=== PATIENT | male | born 1940 | race Caucasian/White ===

== ENCOUNTER 2022-09-09 13:47 | Emergency (ER) | payer MEDICARE, OTHER, SELFPAY ==
[2022-09-09 14:01] VITALS: BP 129/65; PULSE 81; RESP 14; TEMP 36.7; O2SAT 96; BMI 31.9
--- NOTE | 2022-09-09 14:27 | CRLHL7_ITS ---
For Patients: As a result of the Century Cures Act, medical imaging exams and procedure reports are released immediately into your electronic medical record. You may view this report before your referring provider. If you have questions, please contact your health care provider. Indication: Fall on ice Technique: Three images of the right ankle were acquired Comparison: There are no prior studies for comparison Findings: There is an oblique fracture of the distal fibula. Maximum displacement is about 2 millimeters. There is no widening of the syndesmosis or of the medial compartment. Bone mineral density is decreased. 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 Impression: Distal fibular fracture. No widening of the medial compartment or the distal tibiofibular syndesmosis. Demineralization. Midfoot and hindfoot osteoarthritis. Dense atherosclerotic vascular calcifications. Dictated by David Chavez MD @ 09/09/2022 3:11:17 PM (Electronically Signed)
--- NOTE | 2022-09-09 16:17 | ED.LOWEXIN ---
HPI - Extremity Injury (Lower) General Date Seen: 09/09/22 Chief Complaint: Extremity Pain/Injury, Lower Stated Complaint: Injured Rt Ankle,Fell on Ice Time Seen by Provider: 09/09/22 13:56 Source: patient and family Mode of arrival: ambulatory Limitations: no limitations History of Present Illness HPI Narrative: 82-year-old gentleman presents here for evaluation after a slip in tripped, injuring his right ankle, does not have a lot of pain with this except when he moves around he tells me. Denies any numbness tingling or weakness, or injury anywhere else. Presents here with his , has a history of really poor wound healing also. MD complaint: ankle injury Exacerbating factors: nothing Context: fall Related Data Home Medications Medication Instructions Recorded Confirmed atorvastatin 40 mg tablet 40 mg PO DAILY 09/09/22 09/09/22 budesonide-formoterol HFA 80 2 puff inhalation BID 09/09/22 09/09/22 mcg-4.5 mcg/actuation aerosol inhaler (Symbicort) fluticasone propionate 110 2 puff inhalation BID 09/09/22 09/09/22 mcg/actuation HFA aerosol inhaler (Flovent HFA) isosorbide mononitrate 30 mg 15 mg PO DAILY 09/09/22 09/09/22 tablet,extended release 24 hr montelukast 10 mg tablet 10 mg PO DAILY 09/09/22 09/09/22 nitroglycerin 0.4 mg sublingual 0.4 mg sublingual Q5M PRN chest 09/09/22 09/09/22 tablet pain Allergies Allergy/AdvReac Type Severity Reaction Status Date / Time No Known Drug Allergies Allergy Verified 09/09/22 14:06 Review of Systems Status of ROS: Reports: 10 or more systems reviewed and unremarkable except as noted in History and below PFSH PFSH Social History Smoking Status: Never smoker Do you use any of these nicotine containing products: None How often do you have a drink containing alcohol: never AUDIT-C Alcohol total score: 0 Non-prescribed substance use: denies use Exam Narrative: Exam Narrative: On examination patient is no distress in room 4 he is seen with my medical student, he has swelling on the medial aspect of his right ankle, just above this a healed area where there is obviously a skin lesion. His DP and posterior tibial pulses seem okay and his right ankle, he has really minimal at dorsiflexion or plantar flexion of his ankle, his knee has full painless range of motion, as does his right hip. Sensation is normal over his foot. Const: Vital Signs, click to edit/add: Vital Signs - 24 hr 09/09/22 14:01 Temperature 98.0 F Pulse Rate [Pulse Oximeter] 81 Respiratory Rate 14 Blood Pressure [Ri ght Upper Arm] 129/65 Pulse Oximetry 96 Oxygen Delivery Me thod Room Air Documenting provider has reviewed patient's vital signs: yes Course Course Hospital Course: I discussed the case with the orthopedic surgeon on-call, he recommended after we discussed this a cam walker, I do not think you would be a great candidate for Caleb Monterroso in nonweightbearing and crutches. He does have of I walker at home he can use, follow-up will be with Orthopedics next week, we talked about pain control using Tylenol, and a little bit of oxycodone was given at 1 tablet of the 5 mg he can take every 6 hours for the discomfort. I warned him about says side effects of this including sedation, interaction with alcohol, driving, and also constipation Vital Signs Vital signs: Initial Vital Signs Temperature 98.0 F 09/09/22 14:01 Temperature Source Temporal Artery Scan 09/09/22 14:01 Pulse Rate 81 09/09/22 14:01 Pulse Rhythm 09/09/22 14:01 Respiratory Rate 14 09/09/22 14:01 Blood Pressure 129/65 09/09/22 14:01 Blood Pressure Mean 86 09/09/22 14:01 Blood Pressure Position Sitting 09/09/22 14:01 Pulse Oximetry 96 09/09/22 14:01 Oxygen Delivery Method 09/09/22 14:01 Vital Signs Temperature 98.0 F 09/09/22 14:01 Pulse Rate 81 09/09/22 14:01 Respiratory Rate 14 09/09/22 14:01 Blood Pressure 129/65 09/09/22 14:01 Pulse Oximetry 96 09/09/22 14:01 Oxygen Delivery Method 09/09/22 14:01 Temperature 98.0 F 09/09/22 14:01 Pulse Rate 81 09/09/22 14:01 Respiratory Rate 14 09/09/22 14:01 Blood Pressure 129/65 09/09/22 14:01 Pulse Oximetry 96 09/09/22 14:01 Oxygen Delivery Method 09/09/22 14:01 MDM - Extremity Injury (Lower) Differential Diagnosis Differential diagnosis: Likely ankle sprain and strain, acute internal derangement of knee, fracture of femur, fracture of hip, puncture wound of foot, fracture of toe and ankle fracture Medical Records Attestation: I reviewed the patient's medical records. Imaging Data Ankle x-ray: Attestation: I have reviewed the pertinent imaging results. My impression: Distal oblique fibular fracture, with slight shifting of the ankle moretise Radiologist's impression: Patient: VIRIDIANA CA Facility: [facility] Site . Site : [id number] Study: XRay Extremity Right ANKLE 3V-09/09/2022 2:44:00 PM Ordering Physician: Salome Karimi Final Report: Indication: Fall on ice Technique: Three images of the right ankle were acquired Comparison: There are no prior studies for comparison Findings: There is an oblique fracture of the distal fibula. Maximum displacement is about 2 millimeters. There is no widening of the syndesmosis or of the medial compartment. Bone mineral density is decreased. 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 Impression: Distal fibular fracture. No widening of the medial compartment or the distal tibiofibular syndesmosis. Demineralization. Midfoot and hindfoot osteoarthritis. Dense atherosclerotic vascular calcifications. Dictated by David Chavez MD @ 09/09/2022 3:11:17 PM (Electronic Signature) Discharge Plan Discharge Clinical Impression: Ankle fracture, right Patient Disposition: Home w/ Parent or Adult Condition: Stable Instructions: Leg Fracture (ED) Additional Instructions: Home rest cam walker please leave this on it only comes off when you wash herself. Follow-up next week with Orthopedics appointment will be made for you. Would also use walker at home to try to offload as much as he can. For the discomfort in then for breakthrough pain you can use the prescription as needed. Be careful with combining alcohol with the pain medication as this can make you dizzy. I would also suggest a stool softener. Prescriptions: No Action atorvastatin 40 mg tablet 40 mg PO DAILY budesonide-formoterol [Symbicort] 80-4.5 mcg/actuation HFA aerosol inhaler 2 puff INHALATION BID fluticasone propionate [Flovent HFA] 110 mcg/actuation HFA aerosol inhaler 2 puff INHALATION BID montelukast 10 mg tablet 10 mg PO DAILY isosorbide mononitrate 30 mg tablet extended release 24 hr 15 mg PO DAILY nitroglycerin 0.4 mg tablet, sublingual 0.4 mg sublingual Q5M PRN (Reason: chest pain) Follow Up/Referrals: Kvng Bright MD [Staff Physician] - Rich Diaz MD [Primary Care Provider] - Fuad Mosqueda MD [Staff Physician] - Trev Mcmahon MD [Emergency Provider] - Stand Alone Forms: [facility] Info Instructions
== END 2022-09-09 16:33 | disposition home or self-care (01) ==
PROVIDERS: Emergency Provider Family Medicine; PCP Family Medicine
DX: S82.831A Other fracture of upper and lower end of right fibula, initial encounter for closed fracture (principal); W00.9XXA Unspecified fall due to ice and snow, initial encounter
CPT/HCPCS: 73610; 99283

== ENCOUNTER 2023-05-26 14:23 | Emergency (ER) | payer MEDICARE, OTHER, SELFPAY ==
[2023-05-26 14:30] VITALS: BP 156/80; PULSE 77; RESP 18; TEMP 36.8; O2SAT 94; BMI 31.7
--- NOTE | 2023-05-26 14:46 | CRLHL7_ITS ---
For Patients: As a result of the Century Cures Act, medical imaging exams and procedure reports are released immediately into your electronic medical record. You may view this report before your referring provider. If you have questions, please contact your health care provider. INDICATION: Pain in left calf. COMPARISON: None. TECHNIQUE: A compression venous ultrasound exam was performed of the left lower extremity using doyle-scale imaging, color Doppler and spectral Doppler analysis. FINDINGS: Sonographic imaging of the left lower extremity demonstrates normal compressibility and color Doppler venous blood flow within the common femoral, femoral, deep femoral, and proximal greater saphenous veins. At a lower level the popliteal, peroneal, and posterior tibial veins also show normal compressibility and color Doppler venous blood flow. Limited imaging of the contralateral groin demonstrates a normal spectral waveform and color Doppler venous blood flow within the right common femoral vein. IMPRESSION: Negative for acute DVT in the left lower extremity. Dictated by Montserrat Dawn MD @ 05/26/2023 4:24:39 PM (Electronically Signed)
--- NOTE | 2023-05-26 15:17 | ED.GENADULT ---
HPI - General Adult General Date Seen: 05/26/23 Chief complaint: Extremity Pain/Injury, Lower Stated complaint: L leg pain Time Seen by Provider: 05/26/23 14:43 Source: patient Mode of arrival: ambulatory Limitations: no limitations History of Present Illness HPI narrative: Patient is an 83-year-old male here for evaluation of left calf pain which started yesterday. He is concerned about a possible DVT. He does take Eliquis for atrial fibrillation, does not have any history of DVT or PE. Has not noted any swelling or redness in the leg. He says that it was bothering him a little yesterday and then today when he stood up he noted much more pain in the more proximal calf up to medial to the knee. No trauma. No chest pain or difficulty breathing. Related Data Home Medications Medication Instructions Recorded Confirmed atorvastatin 40 mg tablet 40 mg PO DAILY 09/09/22 12/06/22 budesonide-formoterol HFA 80 2 puff inhalation BID 09/09/22 12/06/22 mcg-4.5 mcg/actuation aerosol inhaler (Symbicort) fluticasone propionate 110 2 puff inhalation BID 09/09/22 12/06/22 mcg/actuation HFA aerosol inhaler (Flovent HFA) isosorbide mononitrate 30 mg 15 mg PO DAILY 09/09/22 12/06/22 tablet,extended release 24 hr montelukast 10 mg tablet 10 mg PO DAILY 09/09/22 12/06/22 nitroglycerin 0.4 mg sublingual 0.4 mg sublingual Q5M PRN chest 09/09/22 12/06/22 tablet pain apixaban 5 mg tablet (Eliquis) 5 mg PO BID 05/26/23 05/26/23 Allergies Allergy/AdvReac Type Severity Reaction Status Date / Time No Known Drug Allergies Allergy Verified 12/06/22 08:25 [facility] Medical History (Updated 05/26/23 @ 16:09 by Marla Boles MD) Ankle fracture ?S82.899A - Other fracture of unspecified lower leg, initial encounter for closed fracture (ICD-10) Cellulitis ?L03.90 - Cellulitis, unspecified (ICD-10) Palpitations ?R00.2 - Palpitations (ICD-10) Infected dog bite of hand ?S61.459A - Open bite of unspecified hand, initial encounter (ICD-10) ?L08.9 - Local infection of the skin and subcutaneous tissue, unspecified (ICD-10) ?W54.0XXA - Bitten by dog, initial encounter (ICD-10) Social History Smoking Status: Former smoker Do you use any of these nicotine containing products: None How often do you have a drink containing alcohol: never AUDIT-C Alcohol total score: 0 Non-prescribed substance use: denies use service: Yes Exam Narrative: Exam Narrative: Vital signs reviewed In general, alert, well-appearing elderly male. Breathing easily. Heart: Regular rate and rhythm. Lungs: Clear. Extremities: Examination of the left lower extremity shows it to be normal in appearance, he has some varicosities but no significant edema, no erythema or warmth. He does have some tenderness throughout the calf. Has full range of motion of the knee, no effusion, erythema or warmth. Skin: Warm dry well perfused. Const: Vital Signs, click to edit/add: Vital Signs - 24 hr 05/26/23 14:30 Temperature 98.3 F Pulse Rate [Right Pulse Oximeter] 77 Respiratory Rate 18 Blood Pressure [Ri ght Upper Arm] 156/80 H Pulse Oximetry 94 Oxygen Delivery Me thod Room Air Documenting provider has reviewed patient's vital signs: yes Course Course ED Course: Discussed with him that DVT is relatively unlikely given his apixaban, but go ahead and get an ultrasound to rule this out for him. Otherwise, exam is pretty unremarkable. Symptoms do not sound like claudication, there is no evidence of cellulitis. He does have some varicosities and perhaps those are contributing. Preliminary read of the ultrasound is negative for DVT but he does have moderate calcifications in his arterial system. Might be reasonable to pursue that as an outpatient, certainly no indication of ischemia today. I have asked Dr. Boston to follow up on the final ultrasound read, if there are any differences between the preliminary and final we will contact the patient. Otherwise, discharged home, Tylenol if needed, recommend primary care follow-up in consideration of arterial imaging. Return for severe pain, duskiness, redness, fever or other acute changes. Vital Signs Vital signs: Initial Vital Signs Temperature 98.3 F 05/26/23 14:30 Temperature Source Temporal Artery Scan 05/26/23 14:30 Pulse Rate 77 05/26/23 14:30 Respiratory Rate 18 05/26/23 14:30 Blood Pressure 156/80 H 05/26/23 14:30 Blood Pressure Mean 105 05/26/23 14:30 Blood Pressure Position Sitting 05/26/23 14:30 Pulse Oximetry 94 05/26/23 14:30 Oxygen Delivery Method Room Air 05/26/23 14:30 Vital Signs Temperature 98.3 F 05/26/23 14:30 Pulse Rate 77 05/26/23 14:30 Respiratory Rate 18 05/26/23 14:30 Blood Pressure 156/80 H 05/26/23 14:30 Pulse Oximetry 94 05/26/23 14:30 Oxygen Delivery Method Room Air 05/26/23 14:30 Temperature 98.3 F 05/26/23 14:30 Pulse Rate 77 05/26/23 14:30 Respiratory Rate 18 05/26/23 14:30 Blood Pressure 156/80 H 05/26/23 14:30 Pulse Oximetry 94 05/26/23 14:30 Oxygen Delivery Method Room Air 05/26/23 14:30 Discharge Plan Discharge Clinical Impression: Left leg pain Patient Disposition: Home, Self-Care Condition: Stable Instructions: Leg Pain (ED) Additional Instructions: Ultrasound today does not show any evidence of blood clot, but does show some calcifications in the arteries of your leg. I would like you to follow-up with your primary doctor to discuss further arterial imaging. Return at any time for severe unremitting pain, new symptoms such as redness or duskiness of your leg, significant swelling, fever etcetera. Prescriptions: No Action Eliquis 5 mg tablet 5 mg PO BID atorvastatin 40 mg tablet 40 mg PO DAILY budesonide-formoterol [Symbicort] 80-4.5 mcg/actuation HFA aerosol inhaler 2 puff INHALATION BID fluticasone propionate [Flovent HFA] 110 mcg/actuation HFA aerosol inhaler 2 puff INHALATION BID montelukast 10 mg tablet 10 mg PO DAILY isosorbide mononitrate 30 mg tablet extended release 24 hr 15 mg PO DAILY nitroglycerin 0.4 mg tablet, sublingual 0.4 mg sublingual Q5M PRN (Reason: chest pain) Follow Up/Referrals: Rich Diaz MD [Primary Care Provider] - Stand Alone Forms: [employer] Info Instructions
== END 2023-05-26 16:33 | disposition home or self-care (01) ==
PROVIDERS: Emergency Provider Emergency Medicine; PCP Family Medicine
DX: M79.662 Pain in left lower leg (principal)
CPT/HCPCS: 93971; 99283; 99284

== ENCOUNTER 2023-08-03 08:45 | Outpatient (RCR) | payer MEDICARE, OTHER, SELFPAY | END 2023-08-03 10:11 | disposition home or self-care (01) | PROVIDERS: PCP Family Medicine; Visit Provider Family Medicine | DX: M17.12 Unilateral primary osteoarthritis, left knee (principal); M25.562 Pain in left knee; Z51.89 Encounter for other specified aftercare | CPT/HCPCS: 97110; 97161 ==

== ENCOUNTER 2024-09-14 11:30 | Emergency (ER) | payer MEDICARE, OTHER, SELFPAY ==
[2024-09-14 11:53] VITALS: BP 153/72; PULSE 87; RESP 18; TEMP 36.9; O2SAT 93; BMI 30.9
--- NOTE | 2024-09-14 12:00 | CRLHL7_ITS ---
For Patients: As a result of the Cures Act, medical imaging exams and procedure reports are released immediately into your electronic medical record. You may view this report before your referring provider. If you have questions, please contact your health care provider. INDICATION: Cough TECHNIQUE: Chest 2 views. COMPARISON: None. FINDINGS: Cardiovascular and mediastinum: Heart size is normal. Unremarkable mediastinum. Left chest wall pacemaker with in the right atrial appendage and right ventricle. Lungs and pleural spaces: Mild bronchial wall thickening. No pneumothorax or pleural effusion. Bones and soft tissues: No significant findings. IMPRESSION: Mild bronchial wall thickening, which can be seen with infectious or inflammatory bronchitis. Dictated by Bee Briggs MD @ 09/14/2024 12:41:51 PM (Electronically Signed)
[2024-09-14 12:46] LABS: PCR FLU A Negative PCR FLU A (Negative); PCR FLU B Negative PCR FLU B (Negative); PCR RSV Negative PCR RSV (Negative); SARS PCR* Negative SARS-CoV-2 (Negative)
[2024-09-14] MEDS: predniSONE 10 MG TABLET 50 MG PO (14:36)
[2024-09-14] MEDS: IPRAT-ALBUT 0.5-2.5 MG/3 ML NEB 1 NEB IH ×2 (14:37→15:01)
--- OUTSIDE RECORDS SUMMARY | 2024-09-14 14:56 | XMS_ITS | Clinical Summary ---
Author Organization [facility] Address [address] [place] [address] Care Team Providers Care Slag Wheeler Name Role Phone Unavailable Primary Care Provider Unavailabl e Source Comments Patient records contain information from all sites at [facility]. For routine questions regarding patient records, call [phone] during business hours, M-F 8:00 AM - 5:00 PM Central Time. Record requests for emergency care only can be directed to [phone] at any time.[facility] Allergies No known active allergies Medications albuterol (PROAIR HFA) 90 mcg/actuation inhaler Inhale 2 puffs. 3 Active ascorbate calcium, Vitamin C, 500 mg tablet Take 500 mg by mouth. 6 Active atorvastatin (LIPITOR) 40 mg tablet Take 40 mg by mouth. 9 Active isosorbide mononitrate (IMDUR) 30 mg 24 hr tablet Take 15 mg by mouth. 9 Active fluticasone propionate (FLOVENT HFA) 110 mcg/actuation inhaler Inhale. 8 Active nitroglycerin (NITROSTAT) 0.[address] 0.4 mg under the tongue. 9 Active montelukast sodium (MONTELUKAST ORAL) Take by mouth every evening. 5 Active famotidine (PEPCID) 20 mg tablet Take 20 mg by mouth. 1 Active budesonide/formo terol fumarate (SYMBICORT INHL) Act christin sodium chloride-sodium bicarbonate (NEILMED SINUS RINSE) nasal rinse Administer into nostril(s). 5 Active atorvastatin (LIPITOR) 40 mg tablet Take 40 mg by mouth. 3 Active montelukast (SINGULAIR) 10 mg tablet Take 10 mg by mouth. 3 Active fluticasone propionate (FLOVENT HFA) 110 mcg/actuation inhaler Inhale 2 puffs. 3 Active Active Problems Problem Noted Date Diagnosed Date Asthma 05/10/2023 Fracture Lower Leg Other Closed Initial Right Atrial Fibrillation Paroxysmal 06/04/2022 Overview (05/10/2023): Discussed his 2 bouts of 4-5 hours of atrial fibrillation in last year with Dr. Munson of Cardiology and he recommended a discussion about Eliquis with Kevin and at the very least Aspirin 325 mg daily and then a full Cardiology consult. Kevin refused going on Eliquis at least until he sees Cardiology but will take aspirin 325 mg daily. Rich Diaz MD signed electronically .................... 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 Syncope And Collapse 12/08/2018 Asthma Moderate Persistent 10/09/2018 Rhinitis Chronic 10/09/2018 Immunizations Immunization Administration Dates Next Due Influenza high dose QV(65 years or older) (PF) 1 08/24/2020 SARS-COV-2 (COVID-19) - PFIZ ER (Discontinued)(12 years or older) 06/24/2021 Social History Tobacco Use Types Packs/Day Years Used Date Smoking Tobacco: Former Smokeless Tobacco: Never Tobacco Cessation:Counseling Given: Not Answered Overall Financial Resource Strain (CARDIA) Answe r Date Recorded How hard is it for you to pa y for the very basics like food, housing, medical care, and heating? Not hard at all 05/04/2023 Exercise Vital Sign Answer Date Recorde d On average, how many days pe r week do you engage in moderate to strenuous exercise (like a brisk walk)? 0 days 05/04/2023 On average, how many minutes do you engage in exercise at this level? 0 min 05/04/2023 Hunger Vital Sign Answer Date Recorded Within the past 12 months, y ou worried that your food would run out before you got the money to buy more. Never true 05/04/20 Within the past 12 months, t he food you bought just didn't last and you didn't have money to get more. Never true 05/04/2023 PRAPARE - Transportation Answer Date Re corded In the past 12 months, has l ack of transportation kept you from medical appointments or from getting medications? No 04/22 In the past 12 months, has l ack of transportation kept you from meetings, work, or from getting things needed for daily living? No 05/04/2023 Nutrition Answer Date Recorded Nutrition: EVOO Fat Source Unknown 05/04 On average, how many serving s of fruits and vegetables do you eat per day (serving size is equal to 1 cup or approximately the size of a tennis ball)? 0-2 05/04/2023 Dental Answer Date Recorded Dental: Regular Dentist Yes 05/04/20 Employment Answer Date Recorded Employment status Retired 05/04/2023 Housing Stability Answer Date Recorded What is your living situation today? I have a [facility] place to live 05/04/2023 Sex and Gender Information Value Date Recorded Sex Assigned at Male 05/04/2023 2:44 PM CDT Legal Sex Male 1:21 PM COOK 3 PASTRY Gender Identity Male 05/04/2023 2:44 PM CDT Sexual Orientation Not on file Last Filed Vital Signs Vital Sign Reading Time Taken Comments Blood Pressure 111/76 12/11/2018 12:45 PM CDT Pulse 75 12/11/2018 12:45 PM CDT Temperature 36.7 C (98.1 F) 12/11/2018 10:22 AM CDT Respiratory Rate 12 12/11/2018 12:45 PM CDT Oxygen Saturation 94% 12/11/2018 12:45 PM CDT Inhaled Oxygen Concentration - - Weight 82 kg (180 lb 12.4 oz) 07/28/2015 6:39 AM COOK 3 PASTRY Height 160 cm (5' 2.99) 07/28/2015 8:21 AM COOK 3 PASTRY Body Mass Index 32.03 07/28/2015 6:39 AM COOK 3 PASTRY Plan of Treatment Health Maintenance Due Date Last Done Comments Zoster Vaccines (1 of 2) 02/02/1988 IPV Vaccines (2 of 3 - Adult catch-up series) 11/02/1996 10/05/1996 RSV vaccine - (32-3 6 weeks) or 60+ years (1 - 1-dose 75+ series) 2013 COVID-19 Vaccine (7 - 2023-2 5 season) 2024 06/08/2023, 06/15/2022, 01/13/2022, Additional history exists Influenza Vaccine (#1) 2024 , 06/24/2021, 06/20/2019, Additional history exists Depression Screening (Annual PHQ-2) 08/22/2024 Fall Risk Screen (Annual) 08/22/2024 DTaP,Tdap,and Td Vaccines (2 - Td or Tdap) 06/21/2029 06/21/2019 Pneumococcal vaccine (50+ years) Completed 06/04/20 15, 01/15/2008 Insurance [employer] MEDICARE
--- OUTSIDE RECORDS SUMMARY | 2024-09-14 14:56 | XMS_ITS ---
Author Organization [facility] Address [address] [place] [id number] Care Team Providers Care Furnace Tapper Name Role Phone Unavailable Unavailable Unavailable Surgery Details Not on file Complications Check Surgery Details section. Procedure Estimated Blood Loss Check Surgery Details section. Procedure Findings Check Surgery Details section. Procedure Specimens Taken Check Surgery Details section.
--- OUTSIDE RECORDS SUMMARY | 2024-09-14 14:56 | XMS_ITS | Clinical Summary ---
Author Organization [employer] Address [place], [place] [address] Care Team Providers Care Information Security Architect Name Role Phone Rich Diaz MD Primary Care Provider [phone] Allergies No known active allergies Medications Inhalational Spacing Device For home use.VORB MD Samantha 1 Device 0 09/05/19 14 Active sod chlor&bicarb-squee z bottle (NEILMED SINUS RINSE COMPLETE) pkdv Inhale in the nostril(s). 0 06/04/20 15 Active famotidine (Pepcid AC) 20 mg tabletIndications: Moderate persistent asthma without complication Take 1 Tablet (20 mg) by mouth 2 times daily. 0 12/30/19 21 Active nitroglycerin (NITROSTAT) 0.4 mg sublingual tabletIndications: Abnormal stress test,Atypical chest pain Place 1 Tablet (0.4 mg) under the tongue every 5 minutes if needed for Chest Pain. May repeat x 3 doses 25 Tablet 1 01/25/20 24 Active isosorbide mononitrate (IMDUR) 30 mg extended release tablet 24 HourIndications:Ab normal stress test Take 0.5 Tablets (15 mg) by mouth once daily. 45 Tablet 4 01/25/20 24 Active montelukast (SINGULAIR) 10 mg tabletIndications: Uncomplicated severe persistent asthma Take 1 Tablet (10 mg) by mouth at bedtime. 90 Tablet 3 01/25/20 24 Active atorvastatin (Lipitor) 40 mg tabletIndications: Hyperlipidemia, unspecified hyperlipidemia type Take 1 Tablet (40 mg) by mouth once daily. 90 Tablet 4 01/25/20 24 Active apixaban (ELIQUIS) 5 mg tabletIndications: Paroxysmal atrial fibrillation (HC) Take 1 Tablet (5 mg) by mouth two times daily. 180 Tablet 3 01/25/20 24 Active albuterol HFA (ProAir HFA) 90 mcg/actuation inhalerIndications :Moderate persistent asthma with exacerbation Inhale 1-2 Puffs by mouth every 6 hours if needed for Shortness of Breath 1st choice. 1 Each 03/05/20 24 Active albuterol HFA (Ventolin HFA) 90 mcg/actuation inhalerIndications :Moderate persistent asthma without complication Inhale 2 Puffs by mouth 4 times daily if needed for Shortness Of Breath or Wheezing. 1 Each 11 04/26/20 24 Active hyaluronidase in lido 2%-bupiv. 0.75% - long eye block, clinic supply, Use as directed for procedure. Refrigerate. Exp: 05/11/24 DOS: 05/08/24 10 mL 4 12:15 PM CDT 04/30/20 24 Active budesonide-formote roL (SYMBICORT) 160-4.5 mcg/actuation (160-4.5 mcg each actuation) inhalerIndications :Uncomplicated severe persistent asthma Inhale 2 Puffs by mouth two times daily. Inhale 2 puffs twice daily 3 Each 2 06/28/20 24 Active guaiFENesin SR (MUCINEX 12 HOUR) 1,200 mg Ta12 Take 1,200 mg by mouth every 12 hours if needed for Expectoration. Active albuterol-ipratrop ium (DUONEB) (2.5-0.5 mg) in 3 mL NEBULIZATION solutionIndication s:Moderate persistent asthma without complication Inhale 3 mLs via nebulization route 2-4 times daily as needed 360 mL 1 08/24/19 25 Active albuterol-ipratrop ium (DUONEB) (2.5-0.5 mg) in 3 mL NEBULIZATION solutionIndication s:Moderate persistent asthma without complication Inhale 3 mL via a nebulizer two times daily. 60 mL 3 04/26/20 24 025 Discontin ued(Reord er (E-cancel not sent)) Active Problems Problem Noted Date Diagnosed Date Uncomplicated severe persistent asthma 4 Paroxysmal atrial fibrillation 06/04/2022 Overview (08/17/2022): Discussed his 2 bouts of 4-5 hours [...] Diaz MD signed electronically .................... 08/17/2022 Chronic systolic heart failure 12/29/2020 TOY 12/03/2013 AHI-6.6 01/01/2019 Advanced sleep phase syndrome 01/01/2019 Paroxysmal high-grade AVB (a trioventricular block) with 3.1-8.2-second pauses on extended Holter from 11/19/2018 to 11/30/2018 12/08/2018 S/P dual-chamber permanent p acemaker implantation on 12/08/2018 12/08/2018 History of recurrent transie nt near syncope (likely manifestation of paroxysmal high-grade atrioventricular block) 12/08/2018 Moderate persistent asthma 10/09/2018 Chronic rhinitis 10/09/2018 Unspecified asthma(493.90) Personal history of malignant neoplasm of prosta te Overview (01/14/2008): s/p radical prostatectomy Aug 2005 Resolved Problems Problem Noted Date Diagnosed Date Resolved Date Calculus of gallbladder with acute cholecystitis, without mention of obstruction 01/20/2008 12/21/2010 Abdominal pain, epigastric 01/14/2008 0 12/21/2010 ELEVATED LEVELS OF TRANSAMINASES 01/14/2008 12/21/2010 ELEVATED TROPONIN 01/14/2008 12/21/2010 Overview (01/14/2008): Troponin I margaux from 0.04 to 0.45. CK-MB neg and no EKG changes. Encounters Date Type Department Care Team Description 09/13/2024 Travel 08/21/2024 Telephone [facility] [place] [address] [phone] Migue Francois MD Refill Request 07/05/2024 9:40 AM SURGERY NURSE Office Visit [facility] [place] [address] [facility] [address] [place] [address] Migue Francois MD Follow Up 07/05/2024 Travel 06/30/2024 Travel 06/20/2024 Refill [facility] [address], [place] [address] Rich Diaz MD Refill Request (Budesonide-formoter ol) from Last 3 Months Immunizations Name Administration Dates Next Due COVID-19 VACCINE SPIKEVAX (M ODERNA 50MCG/0.5ML) 12YO+ PFS 06/08/2023 COVID-19 vaccine (Pfizer-Bio NTech 30mcg/0.3mL) 12YO+ BIVALENT PF, MDV 06/15/2022 COVID-19 vaccine (Pfizer-Bio NTech 30mcg/0.3mL) 12YO+ MICHELLE-SUCROSE PF, MDV 01/13/2022 COVID-19 vaccine (Pfizer-Bio NTech 30mcg/0.3mL) PF, MDV 06/24/2021,10/28/2020,10/07/2020 Hepatitis A (Adult) 10/05/1996 Inactivated Polio Vaccine 10/05/1996 Influenza, High-dose Inactivated 06/04/2015,06/22 Influenza, IIV3 (Age >=3 years) 09/15/2005 Influenza, Inactivated AIIV4 (Age 65+ Years) Preserv Free 08/16/2022,06/24/2021 Influenza, Inactivated IIV3 (Age 65+ Years) Preserv Free 06/20/2019 Pneumococcal Poly,23-Valent (Pneumovax) 01/15/20 08 Pneumococcal conj 13-Valent (Prevnar 13) 015 Td (Age >=7 Years) 10/05/1996 Tdap 06/21/2019 Family History Medical History Relation Name Comments Heart Disease Brother 1 Sathish s/p CABG at ag e 75 Stroke Brother 2 Quinton GI Disease Daughter gall stones, s/ p eulalia Heart Disease Father of 'heart failure' Unknown Mother cancer? Dementia Sister 1 Gillian Relation Name Status Comments Brother 1 Sathish Alive Brother 2 Quinton Alive Daughter Father Mother Sister 1 Gillian Alive Sister 2 Carolina Alive Social History Tobacco Use Types Packs/Day Years Used Date Smoking Tobacco: Former Cigarettes 1 16 0 08/22/1959 - 08/22/1975 Passive Smoke Exposure: Past Smokeless Tobacco: Never Tobacco Cessation:Counseling Given: Yes Alcohol Use Standard Drinks/Week Comments No 0 (1 standard drink = 0.6 oz pur e alcohol) PHQ-2 Answer Date Recorded PHQ-2 TOTAL SCORE 0 01/25/2024 Social Connections Answer Date Recorded Do you often feel lonely or isolated from those around you? 0 09/13/2024 Financial Resource Strain Answer Date R ecorded Difficulty of Paying Living Expenses 3 09/13/2024 Difficulty of Paying Living Expenses Not on file 09/13/2024 Food Insecurity Answer Date Recorded Do you worry your food will run out before you are able to buy more? 1 09/13/2024 Transportation Needs Answer Date Record ed Does lack of transportation keep you from medica l appointments? 1 09/13/2024 Does lack of transportation keep you from work, meetings or getting things that you need? 1 09/13/2024 Housing Stability Answer Date Recorded What is your housing situation today? 1 09/13/2024 Utilities Answer Date Recorded Do you have trouble paying f or utilities (for example, heat, electricity, water, phone)? 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 Not on file Not on file Not on file Obstetrics History Last Filed Vital Signs Vital Sign Reading Time Taken Comments Blood Pressure 100/56 07/05/2024 9:56 AM SURGERY NURSE Pulse 80 07/05/2024 9:56 AM SURGERY NURSE Temperature 36.7 C (98 F) 01/25/2024 10:00 AM CDT Respiratory Rate 19 04/26/2024 11:05 AM CDT Oxygen Saturation 94% 07/05/2024 9:56 AM SURGERY NURSE Inhaled Oxygen Concentration - - Weight 80.1 kg (176 lb 9.6 oz) 07/05/2024 9:56 A M SURGERY NURSE Height 158.8 cm (5' 2.5) 07/05/2024 9:56 AM SURGERY NURSE Body Mass Index 31.79 07/05/2024 9:56 AM SURGERY NURSE Plan of Treatment Upcoming Encounters Date Type Department Care Team (Late st Contact Info) Description 09/18/2024 7:30 AM SURGERY NURSE Office Visit [facility] [address] [place] [address] Rich Diaz MD [address] [place] [address] 10/02/2024 9:40 AM SURGERY NURSE Office Visit [facility] [place] [address] [facility] [address] [place] [phone] Migue Francois MD [address] [place] [address] [place] [address] 10/09/2024 Cardiac Device Check [facility] [place] [phone] Health Maintenance Due Date Last Done Comments Zoster (shingles) series for age 50+ (1 of 2) 02/02/1988 RSV vaccine for adults or (1 - 1-dose 75+ series) 2013 COVID-19 vaccine series ( season) 2024 06/08/2023, 06/15/2022, 01/13/2022, Additional history exists Influenza for age 65+ 04/22/2024 08/16/2022 , 06/24/2021, 06/20/2019, Additional history exists Depression screening for age 12+ 01/24/2025 01/25/2024, 01/20/2023, 01/19/2023, Additional history exists Medicare Wellness for age 65+ 01/25/2025, 01/19/2023, 01/13/2022, Additional history exists BMI (ht and wt on same day) for age 18+ 07/05/2025 07/05/2024, 04/26/2024, 03/05/2024, Additional history exists Tetanus booster 06/21/2029 06/21/2019, 10/05/1996 Pneumococcal series for age 50+ Completed 5, 01/15/2008 Tdap Completed 06/21/2019 Medical Devices Implanted Type Area Folded Towel Machine Operator Device Identifier Shelf Expiration Date Model / Serial / Lot Dual Chamber Mri Conditional Pacemaker Implanted:2018 by Adolfo Reed MD (Quantity not on file) Standard Pacemaker Med[employer]onic BAYLEE XT DR MRI [id number] / [id number] / Procedures Procedure Name Priority Date/Time Associated Diagnosis Comments SCAN-PULMONARY FUNCTION TEST 07/05/2024 12:00 AM SURGERY NURSE from Last 3 Months Results * SCAN-PULMONARY FUNCTION TEST (07/05/2024 12:00 AM SURGERY NURSE) us Scanner OTHER Final Result from Last 3 Months Insurance MEDICARE PART A HB ONLY [employer] PB ONLY MEDICA PRIME SOLUTION HB MEDICARE PART B HB ONLY Advance Directives Documents on File Type Date Recorded Patient Drying Room Supervisor Expl anation Healthcare Directive 01/28/2022 3:17 PM HEA LT CARE DIRECTIVE * Full Code (Latest Code Status on File) Date Activated Date Inactivated Comments 12/07/2018 3:08 PM 12/09/2018 4:03 PM Question Answer Comments Code Status Discussion: Discussed * Full Code Date Activated Date Inactivated Comments 01/14/2008 2:43 PM 01/20/2008 3:49 PM Care Teams Information Security Architect Relationship Specialty Start Date End Date Rich Diaz MD [address] [address] PCP - General Family Practice 10/13/20
--- OUTSIDE RECORDS SUMMARY | 2024-09-14 14:58 | XMS_ITS | Referral Summary ---
Author Organization [facility] Address [address] [place] [address] Care Team Providers Care Industrial Waste Treatment Technician Name Role Phone Unavailable Primary Care Provider Unavailabl e Source Comments Patient records contain information from all sites at [facility]. For routine questions regarding patient records, call [phone] during business hours, M-F 8:00 AM - 5:00 PM Central Time. Record requests for emergency care only can be directed to [phone] at any time.[facility] Allergies No known active allergies Medications albuterol [...] your living situation today? 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
--- NOTE | 2024-09-14 15:25 | ED.GENADULT ---
HPI - General Adult General Chief complaint: Cough Stated complaint: Possible pneumonia Time Seen by Provider: 09/14/24 13:23 Source: patient Mode of arrival: ambulatory Limitations: no limitations History of Present Illness HPI narrative: 84-year-old male presenting today with cough has been present for over 1 month. He states the last couple weeks the cough has been getting worse. He describes it as constant, productive. It keeps him up at night. Patient does state that he has a history of asthma. Approximately 6 weeks ago he had a prednisone treatment that helped temporarily and then his symptoms came back. He denies fevers or chills. He does have several inhalers at home as well as an albuterol neb that he uses and it does help some. He is concerned that he has developed pneumonia. He denies chest pain. The last couple of days his appetite has been low but otherwise he has been eating and drinking normally. Related Data Home Medications ?Medication ?Instructions ?Recorded ?Confirmed atorvastatin 40 mg tablet 40 mg PO DAILY 09/09/22 12/06/22 budesonide-formoterol HFA 80 2 puff inhalation BID 09/09/22 12/06/22 mcg-4.5 mcg/actuation aerosol inhaler (Symbicort) fluticasone propionate 110 2 puff inhalation BID 09/09/22 12/06/22 mcg/actuation HFA aerosol inhaler (Flovent HFA) isosorbide mononitrate 30 mg 15 mg PO DAILY 09/09/22 12/06/22 tablet,extended release 24 hr montelukast 10 mg tablet 10 mg PO DAILY 09/09/22 12/06/22 nitroglycerin 0.4 mg sublingual 0.4 mg sublingual Q5M PRN chest 09/09/22 12/06/22 tablet pain apixaban 5 mg tablet (Eliquis) 5 mg PO BID 05/26/23 05/26/23 Previous Rx's ?Medication ?Instructions ?Recorded ipratropium 0.5 mg-albuterol 3 mg 3 ml inhalation Q6H PRN #90 mL 09/14/24 (2.5 mg base)/3 mL nebulization soln prednisone 20 mg tablet 20 mg PO DIRECTED 9 days #18 09/14/24 tabs Allergies Allergy/AdvReac Type Severity Reaction Status Date / Time No Known Drug Allergies Allergy Verified 12/06/22 08:25 Review of Systems Status of ROS: Reports: 10 or more systems reviewed and unremarkable except as noted in History and below [facility] Medical History Ankle fracture ?S82.899A - Other fracture of unspecified lower leg, initial encounter for closed fracture (ICD-10) Cellulitis ?L03.90 - Cellulitis, unspecified (ICD-10) Palpitations ?R00.2 - Palpitations (ICD-10) Infected dog bite of hand ?S61.459A - Open bite of unspecified hand, initial encounter (ICD-10) ?L08.9 - Local infection of the skin and subcutaneous tissue, unspecified (ICD-10) ?W54.0XXA - Bitten by dog, initial encounter (ICD-10) Social History Smoking Status: Former smoker Do you use any of these nicotine containing products: None How often do you have a drink containing alcohol: never AUDIT-C Alcohol total score: 0 Non-prescribed substance use: denies use service: Yes Exam Narrative: Exam Narrative: Well-nourished well-developed patient in no acute distress. Alert and oriented. Answers questions appropriately. Mood and affect are appropriate. Thoughts are goal oriented and rational. No tangential or magical thinking noted. Patient speaks in full sentences without needing to catch his breath. Does cough quite a bit during our time together. HEENT: Normocephalic atraumatic. Pupils are equally round reactive to light. Extraocular muscles are intact. Conjunctivae are moist without any icterus noted. Moist mucous membranes. Posterior pharynx is normal. Neck is soft. Cardiovascular: Heart is regular rate and rhythm S1 and S2 are present without any murmurs. Lungs: Patient has significant bilateral wheezing. Abdomen: Soft and nontender nondistended with normal bowel sounds. Extremities: Bilateral lower extremities are without edema. Skin: Well perfused without any obvious rashes. Const: Vital Signs, click to edit/add: Vital Signs - 24 hr 09/14/24 11:53 Temperature 98.4 F Pulse Rate [Pulse Oximeter] 87 Respiratory Rate 18 Blood Pressure [Ri ght Upper Arm] 153/72 H Pulse Oximetry 93 Oxygen Delivery Me thod Room Air Course Course ED Course: Patient received oral prednisone and a DuoNeb which did help him. Chest x-ray, read by me, does not show acute pathology. Radiologic over-read suggesting bronchial wall thickening. Triple swab is negative. DuoNeb was repeated at this time with greater relief of his symptoms. Vital Signs Vital signs: Initial Vital Signs Temperature 98.4 F 09/14/24 11:53 Temperature Source Temporal Artery Scan 09/14/24 11:53 Pulse Rate 87 09/14/24 11:53 Respiratory Rate 18 09/14/24 11:53 Blood Pressure 153/72 H 09/14/24 11:53 Blood Pressure Mean 99 09/14/24 11:53 Pulse Oximetry 93 09/14/24 11:53 Oxygen Delivery Method Room Air 09/14/24 11:53 Vital Signs Temperature 98.4 F 09/14/24 11:53 Pulse Rate 87 09/14/24 11:53 Respiratory Rate 18 09/14/24 11:53 Blood Pressure 153/72 H 09/14/24 11:53 Pulse Oximetry 93 09/14/24 11:53 Oxygen Delivery Method Room Air 09/14/24 11:53 Temperature 98.4 F 09/14/24 11:53 Pulse Rate 87 09/14/24 11:53 Respiratory Rate 18 09/14/24 11:53 Blood Pressure 153/72 H 09/14/24 11:53 Pulse Oximetry 93 09/14/24 11:53 Oxygen Delivery Method Room Air 09/14/24 11:53 Medications Administered Medications: Discontinued Medications Generic Name Dose Route Start Last Admin Trade Name Freq PRN Reason Stop Dose Admin Albuterol/Ipratropium 1 [facility] 09/14/24 14:13 09/14/24 14:37 Iprat-Albut 0.5-2.5 Mg/3 Ml [facility] 09/14/24 14:14 1 neb ONCE ONE Administration Albuterol/Ipratropium 1 [facility] 09/14/24 14:57 09/14/24 15:01 Iprat-Albut 0.5-2.5 Mg/3 Ml [facility] 09/14/24 14:58 1 neb ONCE ONE Administration Prednisone 50 mg 09/14/24 14:13 09/14/24 14:36 Prednisone 10 Mg Tablet PO 09/14/24 14:14 50 mg ONCE ONE Administration Medical Decision Making MDM Narrative Medical decision making narrative: A 4-year-old male with an acute asthma exacerbation. Patient will be sent home with DuoNebs which he does not have at home as well as a prednisone taper. Follow-up with primary care in 2-3 days. Discussed reasons to return to the ER. Lab Data Labs: Lab Results 09/14/24 Range/Units 12:00 SARS-CoV-2 (PCR) Negative SARS-CoV-2 (Negative) Influenza Type A (PCR) Negative PCR FLU A (Negative) Influenza Type B (PCR) Negative PCR FLU B (Negative) RSV (PCR) Negative PCR RSV (Negative) Imaging Data Chest x-ray: Attestation: I have reviewed the pertinent imaging results. Radiologist's impression: Chest 2 views. COMPARISON: None. FINDINGS: Cardiovascular and mediastinum: Heart size is normal. Unremarkable mediastinum. Left chest wall pacemaker with in the right atrial appendage and right ventricle. Lungs and pleural spaces: Mild bronchial wall thickening. No pneumothorax or pleural effusion. Bones and soft tissues: No significant findings. IMPRESSION: Mild bronchial wall thickening, which can be seen with infectious or inflammatory bronchitis. Discharge Plan Discharge Clinical Impression: Asthma exacerbation Patient Disposition: Home, Self-Care Condition: Stable Instructions: Asthma (DC) Additional Instructions: Continue your current asthma treatment. You will be sent home with DuoNebs to use in your nebulizer machine, this is the same medication you received while you were in the ER. You will also be sent home with prednisone which is a steroid that helps relax the lungs and help breathing. If you feel like you are getting worse instead of better you should return to the emergency department. Otherwise, you should follow-up with your primary care provider in 2-3 days. Prescriptions: New prednisone 20 mg tablet 20 mg PO DIRECTED 9 Days Qty: 18 0RF Rx Instructions: 60 mg p.o. daily for 3 days (3 tablets daily on day 1-3), 40 mg daily for 3 days (2 tablets daily on days 4-6), 20 mg daily for 3 days (1 tablet daily on days 7-9). ipratropium-albuterol 0.5 mg-3 mg(2.5 mg base)/3 mL solution for nebulization 3 ml inhalation Q6H PRNQty: 90 0RF No Action Eliquis 5 mg tablet 5 mg PO BID atorvastatin 40 mg tablet 40 mg PO DAILY budesonide-formoterol [Symbicort] 80-4.5 mcg/actuation HFA aerosol inhaler 2 puff INHALATION BID fluticasone propionate [Flovent HFA] 110 mcg/actuation HFA aerosol inhaler 2 puff INHALATION BID montelukast 10 mg tablet 10 mg PO DAILY isosorbide mononitrate 30 mg tablet extended release 24 hr 15 mg PO DAILY nitroglycerin 0.4 mg tablet, sublingual 0.4 mg sublingual Q5M PRN (Reason: chest pain) Follow Up/Referrals: Rich Diaz MD [Primary Care Provider] - Stand Alone Forms: [facility] Info Instructions
== END 2024-09-14 15:39 | disposition home or self-care (01) ==
PROVIDERS: Emergency Provider Family Medicine; PCP Family Medicine
DX: J45.901 Unspecified asthma with (acute) exacerbation (principal)
CPT/HCPCS: 71046; 87631; 99283; 99284; J7512

== ENCOUNTER 2025-02-01 13:17 | Outpatient (CLI) | payer MEDICARE, OTHER, SELFPAY | END 2025-02-01 13:18 | disposition home or self-care (01) | LOC: WOUND 13:25 | PROVIDERS: PCP Family Medicine; Referring Provider Family Medicine; Visit Provider Nurse Practitioner Family | DX: I87.2 Venous insufficiency (chronic) (peripheral) (principal); I48.19 Other persistent atrial fibrillation | CPT/HCPCS: G0463 ==